=== PATIENT | female | born 1990 | race Caucasian/White ===

== ENCOUNTER 2016-04-24 11:02 | Emergency (ER) | payer OTHER ==
[~2016-04-24] VITALS: Ht 162.6 cm; Wt 75.3 kg
[2016-04-24 11:04] VITALS: TEMP 36.9; Ht 162.6 cm; Wt 75.3 kg
--- NOTE | 2016-04-24 11:57 | EMERGENCY ROOM VISIT NOTE ---
History Report prepared by Erich: Zeny Corral Under the Supervision of: Dr. Sandip Lara M.D. First contact with patient: 11:15 Chief Complaint: COUGH Stated Complaint: COUGH, HOARSE, STUFFY NOSE Nursing Triage Summary: Pt c/o sore throat, coughing, runny nose or stuffed up nose, losing voice. History of Present Illness The patient is a 25 year old female who presents to the Emergency Room with complaints of a persistent cough that began one week ago. She currently rates her discomfort as a 4/10 in severity. The patient states that she has had a cough, runny nose, and has been congested. She denies any fever. The patient states that she has been using Mucinex for her symptoms without relief. Source of History: patient Onset: one week ago Position: other (global) Symptom Intensity: 4/10 Quality: other (cough) Timing: other (persistent) Associated Symptoms: + sorethroat, No fevers Note: Associated Symptoms: runny nose, congested Review of Systems See HPI for pertinent positives & negatives. A total of 10 systems reviewed and were otherwise negative. Past Medical & Surgical Medical Problems: (1) Bronchitis Surgical Problems: (1) Previous section (2) S/P tonsillectomy (3) [place] teeth extracted Family History Cancer Hypertension Social History Smoking Status: Never Smoker Smokeless Tobacco Use: No Alcohol Use: none Marital Status: other () Housing Status: lives with family Occupation Status: employed Current/Historical Medications Scheduled Azithromycin (Zithromax), 250 MG PO DAILY Control Pills ( Control Pills), 1 TAB PO DAILY Allergies Coded Allergies: Telithromycin (Unverified Allergy, Intermediate, HIVES, 04/24/16) Uncoded Allergies: NKA (Allergy, Unknown, 05/16/03) Physical Exam Vital Signs Date Time Temp Pulse Resp B/P Pulse Ox O2 Delivery O2 Flow Rate FiO2 04/24/16 13:41 88 16 110/70 97 04/24/16 11:04 36.9 90 19 113/83 98 Room Air Physical Exam GENERAL: Patient is a healthy-appearing well-nourished HEAD: Normocephalic atraumatic EYES: Ocular movements intact pupils equal and react to light OROPHARYNX mucous membranes are moist no exudates present no erythema or edema present NECK: Supple no nuchal rigidity CHEST: Good equal expansion LUNGS: Clear and equal to auscultation CARDIAC: Normal S1 and S2 ABDOMEN: Soft nontender no guarding BACK: No CVA tenderness EXTREMITIES: No pain upon palpation normal muscle strength in all groups no clubbing cyanosis or edema NEURO: Patient is following commands is answering questions appropriately. Alert and oriented x3 Cranial Nerves 2-12 grossly intact Medical Decision & Procedures ER Provider Diagnostic Interpretation: X-ray results as stated below per interpretation by me and the radiologist: CHEST ONE VIEW PORTABLE CLINICAL HISTORY: productive cough COMPARISON STUDY: No previous studies for comparison. FINDINGS: The cardiac and mediastinal contours are normal. There is no evidence of focal pulmonary consolidation. There is no evidence of failure. No pleural effusions are visualized.[ IMPRESSION: No active disease in the chest. Electronically signed by: Mayito Mckeon M.D. 04/24/2016 12:21 PM Dictated Date/Time: 04/24/2016 12:21 PM Laboratory Results Test 04/24/16 12:05 Influenza Type A Antigen Neg for Influ A (NEG) Influenza Type B Antigen Neg for Influ B (NEG) Labs reviewed by ED physician. Medications Administered Medications (Trade) Dose Ordered Sig/Lior Route Start Time Stop Time Status Last Admin Dose Admin Albuterol/ Ipratropium (Duoneb) 3 ml NOW STAT INH 04/24/16 12:07 04/24/16 12:08 DC 04/24/16 12:42 3 ML Albuterol (Ventolin Hfa Inhaler) 2 puffs NOW ONCE INH 04/24/16 12:15 04/24/16 12:16 DC 04/24/16 12:42 2 PUFFS Azithromycin (Zithromax Tab) 500 mg NOW ONCE PO 04/24/16 13:00 04/24/16 13:02 DC 04/24/16 13:33 500 MG ED Course 1120: Past medical records reviewed. The patient was evaluated in room A12B. A complete history and physical examination was performed by the resident. 1150: Past medical records reviewed. The patient was evaluated in room A12B. A complete history and physical examination was performed. 1207: Ordered Duoneb 3 ml INH. 1215: Ordered Albuterol 2 puffs INH. 1255: The resident reevaluated the patient and she is doing better. The resident discussed the exam findings with her and discussed the treatment plan. She verbalized complete understanding and agreement. She is ready to go home. 1300: Ordered Azithromycin 500 mg PO. Medical Decision Differential diagnosis: Etiologies such as infections, reactive airway disease, pneumonia, pneumothorax , COPD, CHF, cardiac ischemia, pulmonary embolism, musculoskeletal, gastrointestinal, as well as others were entertained Resident Physician Supervision Note: I was present with Dr. Ortiz during the history and exam. I discussed the case with the resident and agree with the findings and plan as documented in the note. Documented By: Sandip Lara Impression Primary Impression: Upper respiratory infection Scribe Attestation The scribe's documentation has been prepared under my direction and personally reviewed by me in its entirety. I confirm that the note above accurately reflects all work, treatment, procedures, and medical decision making performed by me. Departure Information Dispostion Home / Self-Care Prescriptions Azithromycin (ZITHROMAX) 250 Mg Tab 250 MG PO DAILY, #4 TAB Prov: Sandip Lara MD 04/24/16 Referrals No Doctor, Assigned (PCP) Forms HOME CARE DOCUMENTATION FORM, IMPORTANT VISIT INFORMATION, School Instructions, Work Instructions Patient Instructions A Signature Page, ED URI Viral, My [facility] Additional Instructions Use inhaler twice every 6 hours You have been examined and treated today on an emergency basis only. This is not a substitute for, or an effort to provide, complete comprehensive medical care. It is impossible to recognize and treat all injuries or illnesses in a single emergency department visit. It is therefore important that you follow up closely with your PCP. Call as soon as possible for an appointment. Thank you for your time and consideration. I look forward to speaking with you again soon. Please don't hesitate to call us if you have any questions.
[2016-04-24] MEDS ORDERED: ALBUT/IPRATROP 3MG/0.5MG NEB 3 ML VIAL INH STA (12:07)
[2016-04-24] MEDS ORDERED: ALBUTEROL HFA 8 GM INHALER INH ONE (12:15)
--- NOTE | 2016-04-24 12:23 | DIAGNOSTIC IMAGING REPORT ---
CHEST ONE VIEW PORTABLE CLINICAL HISTORY: productive cough COMPARISON STUDY: No previous studies for comparison. FINDINGS: The cardiac and mediastinal contours are normal. There is no evidence of focal pulmonary consolidation. There is no evidence of failure. No pleural effusions are visualized.[ IMPRESSION: No active disease in the chest. Electronically signed by: Mayito Mckeon M.D. 04/24/2016 12:21 PM Dictated Date/Time: 04/24/2016 12:21 PM
--- NOTE | 2016-04-24 12:35 | EMERGENCY ROOM VISIT NOTE ---
History Report prepared by Erich: Zeny Corral Under the Supervision of: Dr. Sandip Lara M.D. First contact with patient: 11:15 Chief Complaint: COUGH Stated Complaint: COUGH, HOARSE, STUFFY NOSE Nursing Triage Summary: Pt c/o sore throat, coughing, runny nose or stuffed up nose, losing voice. History of Present Illness The patient is a 25 year old female who presents to the Emergency Room with complaints of a persistent cough that began one week ago. She currently rates her discomfort as a 4/10 in severity. The patient states that she has had a cough, runny nose, and has been congested. She denies any fever. The patient states that she has been using Mucinex for her symptoms without relief. Source of History: patient Onset: one week ago Position: other (global) Symptom Intensity: 4/10 Quality: other (cough) Timing: other (persistent) Associated Symptoms: + sorethroat, No fevers Note: Associated Symptoms: runny nose, congestion. Review of Systems See HPI for pertinent positives & negatives. A total of 10 systems reviewed and were otherwise negative. Past Medical & Surgical Medical Problems: (1) Bronchitis Surgical Problems: (1) Previous section (2) S/P tonsillectomy (3) [place] teeth extracted Family History Cancer Hypertension Social History Smoking Status: Never Smoker Smokeless Tobacco Use: No Alcohol Use: none Marital Status: other () Housing Status: lives with family Occupation Status: employed Current/Historical Medications Scheduled Azithromycin (Zithromax), 250 MG PO DAILY Control Pills ( Control Pills), 1 TAB PO DAILY Allergies Coded Allergies: Telithromycin (Unverified Allergy, Intermediate, HIVES, 04/24/16) Uncoded Allergies: NKA (Allergy, Unknown, 05/16/03) Physical Exam Vital Signs Date Time Temp Pulse Resp B/P Pulse Ox O2 Delivery O2 Flow Rate FiO2 04/24/16 13:41 88 16 110/70 97 04/24/16 11:04 36.9 90 19 113/83 98 Room Air Physical Exam This chart created in error Medical Decision & Procedures ER Provider Diagnostic Interpretation: X-ray results as stated below per interpretation by me and the radiologist: CHEST ONE VIEW PORTABLE CLINICAL HISTORY: productive cough COMPARISON STUDY: No previous studies for comparison. FINDINGS: The cardiac and mediastinal contours are normal. There is no evidence of focal pulmonary consolidation. There is no evidence of failure. No pleural effusions are visualized.[ IMPRESSION: No active disease in the chest. Electronically signed by: Mayito Mckeon M.D. 04/24/2016 12:21 PM Dictated Date/Time: 04/24/2016 12:21 PM Laboratory Results Test 04/24/16 12:05 Influenza Type A Antigen Neg for Influ A (NEG) Influenza Type B Antigen Neg for Influ B (NEG) Medications Administered Medications (Trade) Dose Ordered Sig/Lior Route Start Time Stop Time Status Last Admin Dose Admin Albuterol/ Ipratropium (Duoneb) 3 ml NOW STAT INH 04/24/16 12:07 04/24/16 12:08 DC 04/24/16 12:42 3 ML Albuterol (Ventolin Hfa Inhaler) 2 puffs NOW ONCE INH 04/24/16 12:15 04/24/16 12:16 DC 04/24/16 12:42 2 PUFFS Azithromycin (Zithromax Tab) 500 mg NOW ONCE PO 04/24/16 13:00 04/24/16 13:02 DC 04/24/16 13:33 500 MG ED Course 1120: Past medical records reviewed. The patient was evaluated in room A12B. A complete history and physical examination was performed by the resident. 1150: Past medical records reviewed. The patient was evaluated in room A12B. A complete history and physical examination was performed. 1207: Ordered Duoneb 3 ml INH. 1215: Ordered Albuterol 2 puffs INH. Medical Decision This chart created in error Scribe Attestation The scribe's documentation has been prepared under my direction and personally reviewed by me in its entirety. I confirm that the note above accurately reflects all work, treatment, procedures, and medical decision making performed by me. Departure Information Dispostion Other Prescriptions Azithromycin (ZITHROMAX) 250 Mg Tab 250 MG PO DAILY, #4 TAB Prov: Sandip Lara MD 04/24/16 Referrals No Doctor, Assigned (PCP) Patient Instructions A Signature Page, My [facility] [address]
--- NOTE | 2016-04-24 12:39 | EMERGENCY ROOM VISIT NOTE ---
History First contact with patient: 11:15 Chief Complaint: COUGH Stated Complaint: COUGH, HOARSE, STUFFY NOSE Nursing Triage Summary: Pt c/o sore throat, coughing, runny nose or stuffed up nose, losing voice. History of Present Illness THIS IS A DUPLICATE DOCUMENT. PLEASE SEE OTHER NOTE FROM SAME DATE. Past Medical/Surgical History Medical Problems: (1) Bronchitis Surgical Problems: (1) Previous section (2) S/P tonsillectomy (3) [place] teeth extracted Social History Smoking Status: Never Smoker Current/Historical Medications Scheduled Azithromycin (Zithromax), 250 MG PO DAILY Control Pills ( Control Pills), 1 TAB PO DAILY Allergies Coded Allergies: Telithromycin (Unverified Allergy, Intermediate, HIVES, 04/24/16) Uncoded Allergies: NKA (Allergy, Unknown, 05/16/03) Physical Exam Vital Signs Date Time Temp Pulse Resp B/P Pulse Ox O2 Delivery O2 Flow Rate FiO2 04/24/16 13:41 88 16 110/70 97 04/24/16 11:04 36.9 90 19 113/83 98 Room Air Medical Decision & Procedures Laboratory Results Test 04/24/16 12:05 Influenza Type A Antigen Neg for Influ A (NEG) Influenza Type B Antigen Neg for Influ B (NEG) Medications Administered Medications (Trade) Dose Ordered Sig/Lior Route Start Time Stop Time Status Last Admin Dose Admin Albuterol/ Ipratropium (Duoneb) 3 ml NOW STAT INH 04/24/16 12:07 04/24/16 12:08 DC 04/24/16 12:42 3 ML Albuterol (Ventolin Hfa Inhaler) 2 puffs NOW ONCE INH 04/24/16 12:15 04/24/16 12:16 DC 04/24/16 12:42 2 PUFFS Azithromycin (Zithromax Tab) 500 mg NOW ONCE PO 04/24/16 13:00 04/24/16 13:02 DC 04/24/16 13:33 500 MG Departure Information Prescriptions Azithromycin (ZITHROMAX) 250 Mg Tab 250 MG PO DAILY, #4 TAB Prov: Sandip Lara MD 04/24/16 Referrals No Doctor, Assigned (PCP) Patient Instructions A Signature Page, My [facility]
[2016-04-24] MEDS ORDERED: AZITHROMYCIN 250 MG TAB PO ONE (13:00)
[2016-04-24 13:41] VITALS: BP 110/70; PULSE 88; O2SAT 97
--- NOTE | 2016-04-25 07:43 | EMERGENCY ROOM VISIT NOTE ---
History First contact with patient: 11:15 Chief Complaint: COUGH Stated Complaint: COUGH, HOARSE, STUFFY NOSE Nursing Triage Summary: Pt c/o sore throat, coughing, runny nose or stuffed up nose, losing voice. History of Present Illness The patient is a 25 year old female who presents to the Emergency Room with complaints of sore throat Sore throat and rhinorrhea commenced on Sunday or - symptoms relieved by OTC Mucinex The throat soreness progressively worsened and it is somewhat painful on swallowing. Subsequently patient feels she began losing her voice, and developed mucous congestion - dark green phlegm, complaining of post nasal discharge. No fevers/sweats, chills - felt warm this morning, but unmeasured temperature No chest pain, abdominal pain, although she does have some trouble breathing with conversation No ear pain, no sinus tenderness No constipation or diarrhea No UTI symptoms Never smoker No history of asthma Review of Systems See HPI for pertinent positives and negatives. A total of ten systems were reviewed and were otherwise negative. Past Medical/Surgical History Medical Problems: (1) Bronchitis Surgical Problems: (1) Previous section (2) S/P tonsillectomy (3) [place] teeth extracted Social History Smoking Status: Never Smoker Current/Historical Medications Scheduled Azithromycin (Zithromax), 250 MG PO DAILY Control Pills ( Control Pills), 1 TAB PO DAILY Allergies Coded Allergies: Telithromycin (Unverified Allergy, Intermediate, HIVES, 04/24/16) Uncoded Allergies: NKA (Allergy, Unknown, 05/16/03) Physical Exam Vital Signs Date Time Temp Pulse Resp B/P Pulse Ox O2 Delivery O2 Flow Rate FiO2 04/24/16 13:41 88 16 110/70 97 04/24/16 11:04 36.9 90 19 113/83 98 Room Air Physical Exam GENERAL: alert, well appearing, sitting in bed, no acute distress, non-toxic HEAD: Normocephalic, atraumatic. No sinus tenderness. EYES: PERRL, EOMI, normal conjunctiva OROPHARYNX: no exudate, no erythema but mild cobblestoning of the posterior pharynx, lips, buccal mucosa, and tongue normal and mucous membranes are dry NECK: supple, no nuchal rigidity, left sided cervical adenopathy, non-tender LUNGS: Clear to auscultation. Normal chest wall mechanics, good air entry. No crepitations, crackles, or wheezes HEART: no murmurs, S1 normal and S2 normal CHEST: No reproducible tenderness. ABDOMEN: abdomen soft, non-tender, normo-active bowel sounds, no masses, no rebound or guarding. BACK: Back is symmetrical on inspection, no deformities, no midline tenderness, no CVA tenderness. SKIN: Warm, pink, dry. No erythema, rashes, or bruising. EXTREMITIES: Grossly normal. Moving all 4 limbs, strength 5/5. No pitting edema. Calves non tender. NEURO: Alert, Ox3. No focal deficits. Normal sensorium, cranial nerves II-XII grossly intact, normal speech. PSYCH: Mood and affect appropriate. Medical Decision & Procedures ER Provider Diagnostic Interpretation: CHEST ONE VIEW PORTABLE CLINICAL HISTORY: productive cough COMPARISON STUDY: No previous studies for comparison. FINDINGS: The cardiac and mediastinal contours are normal. There is no evidence of focal pulmonary consolidation. There is no evidence of failure. No pleural effusions are visualized.[ IMPRESSION: No active disease in the chest. Laboratory Results Test 04/24/16 12:05 Influenza Type A Antigen Neg for Influ A (NEG) Influenza Type B Antigen Neg for Influ B (NEG) Medications Administered Medications (Trade) Dose Ordered Sig/Lior Route Start Time Stop Time Status Last Admin Dose Admin Albuterol/ Ipratropium (Duoneb) 3 ml NOW STAT INH 04/24/16 12:07 04/24/16 12:08 DC 04/24/16 12:42 3 ML Albuterol (Ventolin Hfa Inhaler) 2 puffs NOW ONCE INH 04/24/16 12:15 04/24/16 12:16 DC 04/24/16 12:42 2 PUFFS Azithromycin (Zithromax Tab) 500 mg NOW ONCE PO 04/24/16 13:00 04/24/16 13:02 DC 04/24/16 13:33 500 MG Medical Decision 25 year old female presented with cough The patient was evaluated in room A12. A complete history and physical exam was performed. Differential diagnoses includes but is not limited to pneumonia, bronchitis, Asthma exacerbation, pneumothorax, croup, Patient was given Duo nebs for symptom relief. Nasopharyngeal swabs were negative for influenza CXR reported no active disease in the chest. Likely diagnosis is upper respiratory infection. As such, patient prescribed Azithromycin and advised for conservative management with Tylenol or Motrin for pain relief and increased oral fluid intake to improve hydration status. Patient understands and agreeable with care plan. Patient discharged home well. Departure Information Prescriptions Azithromycin (ZITHROMAX) 250 Mg Tab 250 MG PO DAILY, #4 TAB Prov: Sandip Lara MD 04/24/16 Referrals No Doctor, Assigned (PCP) Patient Instructions A Signature Page, My [facility] Additional Instructions You were seen in the ED today for upper respiratory symptoms. Your swabs were negative for influenza and there was no cardiopulmonary disease seen on chest x- ray. This is reassuring, but given the duration of your symptoms, upon discharge you have been prescribed a short course of antibiotics. Please complete the antibiotic regimen, even if your symptoms resolve. Other over the conter medications can be continued, as you find them helpful. Tylenol or Motrin can be used for fever management or pain control. You have been examined and treated today on an emergency basis only. This is not a substitute for, or an effort to provide, complete comprehensive medical care. It is impossible to recognize and treat all injuries or illnesses in a single emergency department visit. It is therefore important that you make a follow up with your primary care physician by the end of this week for close monitoring. Return to the ER immediately for worsening or persistent dizziness, vomiting, headache, fevers, chest pains, difficulty breathing, black or bloody stools, slurred speech, numbness, weakness, visual changes, worsening of your condition , or as needed.
== END 2016-04-24 13:41 | disposition home or self-care (01) ==
LOC: MERGE 11:05 → C.EDB 11:05 → C.EDA 13:41
DX: J06.9 Acute upper respiratory infection, unspecified (principal); Z80.9 Family history of malignant neoplasm, unspecified; Z82.49 Family history of ischemic heart disease and other diseases of the circulatory system; Z79.3 Long term (current) use of hormonal contraceptives